=== PATIENT | male | born 2000 | race African-American/Black ===

== ENCOUNTER 2024-01-28 12:03 | Emergency (ER) | payer OTHER ==
[~2024-01-28] VITALS: Ht 165.1 cm; Wt 74.0 kg
[2024-01-28 12:11] VITALS: BP 153/98; TEMP 98.6; O2SAT 99
[2024-01-28 12:12] VITALS: PULSE 83; RESP 18; O2SAT 99
[2024-01-28 13:24] LABS: CLARITY URINE CLEAR (CLEAR); COLOR URINE YELLOW (YELLOW); GLUCOSE URINE NEGATIVE (NEGATIVE); KETONES URINE NEGATIVE (NEGATIVE); LEUKOCYTE ESTERASE URINE 2+ (NEGATIVE); NITRITE URINE NEGATIVE (NEGATIVE); OCCULT BLOOD URINE NEGATIVE (NEGATIVE); PROTEIN URINE TRACE (NEGATIVE); SPECIFIC GRAVITY URINE 1.028 (1.005-1.030)
[2024-01-28] MEDS ORDERED: CLOT15CR5 TP (13:31)
[2024-01-28 13:47] LABS: MUCUS URINE 2+ /lpf (NONE/TRACE)
[2024-01-28 13:48] LABS: BACTERIA URINE 1+; SQUAMOUS EPITHELIAL CELL URINE FEW /lpf (RARE/1+)
[2024-01-28 13:49] LABS: RBC URINE NONE SEEN /hpf (0-2)
[2024-01-28 13:55] LABS: *AMPHETAMINES SCREEN URINE NEGATIVE (NEGATIVE); *BARBITURATES SCREEN URINE NEGATIVE (NEGATIVE); *BENZODIAZEPINES SCREEN URINE NEGATIVE (NEGATIVE); *COCAINE SCREEN URINE NEGATIVE (NEGATIVE)
[2024-01-28 13:56] LABS: CANNABINOID URINE SCREEN PRESUMPTIVE POSITIVE (NEGATIVE); ECSTASY MDMA SCREEN URINE NEGATIVE (NEGATIVE); METHADONE URINE SCREEN NEGATIVE (NEGATIVE); OPIATES URINE SCREEN NEGATIVE (NEGATIVE); PHENCYCLIDINE URINE SCREEN NEGATIVE (NEGATIVE)
== END 2024-01-28 13:51 | disposition home or self-care (01) ==
LOC: ER 12:03
DX: N48.1 Balanitis (principal)
CPT/HCPCS: 80305; 81003; 99283

== ENCOUNTER 2024-09-03 13:52 | Emergency (ER) | payer MEDICAID ==
[~2024-09-03] VITALS: Ht 167.6 cm; Wt 77.0 kg
[~2024-09-03 13:52] MED LIST: CLOT15CR5 TP
[2024-09-03 13:59] VITALS: BP 110/73; TEMP 36.9; O2SAT 98
[2024-09-03 14:13] VITALS: PULSE 107; RESP 16; O2SAT 99
[2024-09-03] MEDS ORDERED: IBUP-2028 MT (15:22)
[2024-09-03] MEDS ORDERED: AMOX1TAB16 MT (15:22)
[2024-09-03] MEDS: KETOROLAC 30MG/ML VIAL IM ONE (16:08)
== END 2024-09-03 16:09 | disposition home or self-care (01) ==
LOC: ER 13:52
DX: J02.9 Acute pharyngitis, unspecified (principal); Z79.899 Other long term (current) drug therapy
CPT/HCPCS: 99283; Z7610; J1885